=== PATIENT | male | born 1980 | race African-American/Black ===

== ENCOUNTER 2017-08-08 09:27 | Inpatient (IN) | payer BC ==
[~2017-08-08] VITALS: Ht 170.2 cm; Wt 88.5 kg
[2017-08-08 09:28] VITALS: Ht 170.2 cm; Wt 88.5 kg
[2017-08-08 10:31] LABS: BASOPHIL % 0.4 % (0-2); PLATELET COUNT 337 x10^3mcL (130-400)
[2017-08-08 11:26] LABS: CALCIUM 9.1 mg/dL (8.5-10.1); CARBON DIOXIDE 28.2 mmol/L (21-32); CHLORIDE SERUM 101 mmol/L (98-107); CREATININE SERUM 1.2 mg/dL (0.7-1.3); GFR1 > 60 mL/min; GLUCOSE SERUM 99 mg/dL (74-106); POTASSIUM SERUM 4.2 mmol/L (3.5-5.1); SODIUM SERUM 135 mmol/L (136-145)
[2017-08-08 11:31] LABS: ALBUMIN 3.9 g/dL (3.4-5.0); ALKALINE PHOSPHATASE 74 U/L (46-116); ALT/SGPT 25 U/L (16-63); AST/SGOT 20 U/L (15-37); BILIRUBIN TOTAL 0.3 mg/dL (0.20-1.00); TOTAL PROTEIN, SERUM 7.5 g/dL (6.4-8.2)
[2017-08-08 13:07] LABS: CHOLESTEROL/HDL RATIO 4.6; PHOSPHOROUS 3.3 mg/dL (2.5-4.9)
[2017-08-08 13:10] LABS: FREE T4 0.92 ng/dL (0.76-1.46); FREE THYROXINE INDEX 1.8 ug/dL (1.4-4.5); T4(THYROXINE) 5.5 ug/dL (4.7-13.3)
[2017-08-08 13:59] VITALS: BP 114/81
[2017-08-08 17:26] VITALS: BP 115/72
[2017-08-08 17:35] LABS: microscopic required? NO
[2017-08-08 17:53] LABS: UA SPECIFIC GRAVITY <=1.005 (1.005-1.035); urine erythrocyte NEGATIVE (NEGATIVE)
[2017-08-08 18:11] LABS: AMPHETAMINE QUAL UR NONE DETECTED (NEG <=1000)
[2017-08-08 18:30] LABS: RED BLOOD CELLS 5.44 M/mm3 (4.52-5.90)
[2017-08-08 20:44] VITALS: BP 109/62
[2017-08-09 05:45] VITALS: BP 105/70
[2017-08-09 06:08] LABS: BASOPHIL % 0.3 % (0-2); PLATELET COUNT 309 x10^3mcL (130-400)
[2017-08-09 06:19] LABS: IRON 83 ug/dL (65-170); TOTAL IRON BINDING CAPACITY 260 ug/dL (250-450)
[2017-08-09 06:26] LABS: CALCIUM 8.2 mg/dL (8.5-10.1); CHLORIDE SERUM 105 mmol/L (98-107); CREATININE SERUM 1.3 mg/dL (0.7-1.3); GFR1 > 60 mL/min; GLUCOSE SERUM 101 mg/dL (74-106); SODIUM SERUM 139 mmol/L (136-145)
[2017-08-09 06:31] LABS: RED CELL DISTRIBUTION WIDTH 16.6 % (11.5-14.5); rbc morphology (normal/abnorm) ABNORMAL (NORMAL)
[2017-08-09 09:15] LABS: T3 TOTAL 0.97 ng/mL
[2017-08-09 09:18] VITALS: BP 122/77
[2017-08-09 13:32] VITALS: BP 113/80
[2017-08-09 16:57] VITALS: BP 110/74
[2017-08-09 21:53] VITALS: BP 131/84
[2017-08-10] MEDS ORDERED: PRI20 PO (05:49)
[2017-08-10] MEDS ORDERED: CARL PO ×2 (05:50→10:56)
[2017-08-10 05:54] VITALS: BP 139/72
[2017-08-10 06:35] LABS: BASOPHIL % 0.3 % (0-2); PLATELET COUNT 312 x10^3mcL (130-400)
[2017-08-10 06:42] LABS: RED CELL DISTRIBUTION WIDTH 16.4 % (11.5-14.5)
[2017-08-10 06:52] LABS: CALCIUM 8.6 mg/dL (8.5-10.1); CARBON DIOXIDE 29.6 mmol/L (21-32); CHLORIDE SERUM 106 mmol/L (98-107); CREATININE SERUM 1.3 mg/dL (0.7-1.3); GFR1 > 60 mL/min; GLUCOSE SERUM 103 mg/dL (74-106); MAGNESIUM 2.1 mg/dL (1.8-2.4); PHOSPHOROUS 3.6 mg/dL (2.5-4.9); SODIUM SERUM 142 mmol/L (136-145)
[2017-08-10 08:27] VITALS: BP 126/82
[2017-08-10 08:55] VITALS: BP 126/82
[2017-08-10 12:39] VITALS: BP 130/71
== END 2017-08-10 13:14 | disposition home or self-care (01) | DRG 381 ==
LOC: ED 09:27 → DU 12:20
PROVIDERS: Family Medicine Sports Medicine; Internal Medicine; Specialist
PROC: 0DB48ZX Excision of Esophagogastric Junction, Via Natural or Artificial Opening Endoscopic, Diagnostic (ICD-10-PCS; principal; 2017-08-09 12:00)
DX: K22.11 Ulcer of esophagus with bleeding (principal); E87.1 Hypo-osmolality and hyponatremia; D64.9 Anemia, unspecified; E78.2 Mixed hyperlipidemia; E83.51 Hypocalcemia
CPT/HCPCS: 43235; 83880; 84439; J1200; J1610; J2250; J2310; J2405; J3010; J3490; J7030; Q0092; Q9967